=== PATIENT | male | born 1965 | race American Indian/Alaskan Native ===

== ENCOUNTER 2016-11-24 21:19 | Emergency (ER) | payer MEDICAID ==
[2016-11-24 22:46] LABS: EOS # 0.5 K/uL (0.0-0.7); EOS % 10.1 % (0.0-4.0); HEMATOCRIT 39.5 % (35.0-51.0); LYMPH # 1.7 K/uL (1.0-4.3); LYMPH % 34.5 % (20.0-40.0); MEAN CELL VOLUME 94.5 fL (80.0-94.0); MEAN CORPUSCULAR HGB CONC 32.9 g/dL (33.0-37.0); MEAN PLATELET VOLUME 7.6 fL (7.2-11.7); MONO # 0.4 K/uL (0.0-0.8); MONO % 7.9 % (0.0-10.0); NRBC % 0.1 % (0.0-2.0); WHITE BLOOD COUNT 4.9 K/uL (4.8-10.8)
[2016-11-24 22:54] LABS: CHLORIDE 98 mmol/L (98-107); POTASSIUM 3.8 mmol/L (3.6-5.2); SODIUM 140 mmol/L (132-148)
[2016-11-24 22:56] LABS: BILIRUBIN,TOTAL 0.7 mg/dL (0.2-1.3); CARBON DIOXIDE 28 mmol/L (22-30); GFR AFRICAN-AMERICAN > 60
[2016-11-24 22:57] LABS: ALB/GLOB RATIO 1.5 (1.0-2.1); ALCOHOL SERUM 160 mg/dl (0-10); ALKALINE PHOSPHATASE 47 U/L (38-126); ALT/SGPT 28 U/L (21-72); AST/SGOT 51 U/L (17-59); BLOOD UREA NITROGEN 9 mg/dL (9-20); CALCIUM 8.5 mg/dl (8.6-10.4); GLUCOSE,RANDOM 90 mg/dL (75-110); TOTAL PROTEIN 7.2 g/dL (6.3-8.3)
[2016-11-24 23:06] LABS: URINE BILIRUBIN NEGATIVE (NEGATIVE); URINE BLOOD NEGATIVE (NEGATIVE); URINE COLOR Yellow (YELLOW); URINE GLUCOSE (UA) NORMAL (Normal); URINE KETONE NEGATIVE (NEGATIVE); URINE LEUKOCYTE ESTERASE NEG Leu/uL (Negative); URINE PROTEIN NEGATIVE (NEGATIVE); URINE UROBILINOGEN NORMAL mg/dL (0.2-1.0); WBC URINE < 1 /hpf (0-5)
--- NOTE | 2016-11-25 | C.PDOC ---
History Of Present Illness 51 year old male presents to the ER with complaints of feeling depressed and having suicidal ideations for the past 2 days. Patient has a suicidal plan to walk into traffic. He currently has no physical complaints. Time Seen by Provider: 11/24/16 22:20 Chief Complaint (Nursing): Psychiatric Evaluation History Per: Patient History/Exam Limitations: no limitations Onset/Duration Of Symptoms: Days (2) Current Symptoms Are (Timing): Still Present Suicide/Self Injury Attempted (Context): None Severity: Moderate Associated Symptoms: Suicidal Thoughts, Suicidal Plan (Walk into traffic) Past Medical History Reviewed: Historical Data, Nursing Documentation, Vital Signs Vital Signs: Last Vital Signs Temp 97.9 F 11/25/16 04:10 Pulse 74 11/25/16 04:10 Resp 16 11/25/16 04:10 BP 134/77 11/25/16 04:10 Pulse Ox 98 11/25/16 04:10 - Medical History PMH: Anxiety, Bipolar Disorder, Depression, HTN, Hyperthyroidism - [facility] Procedures COMBINED ALCOHOL AND DRUG DETOXIFICATION (01/26/15) GROUP PSYCHOTHERAPY (11/25/16) INDIVID PSYCHOTHERAP NEC (02/26/15) INDIVIDUAL PSYCHOTHERAPY, COGNITIVE-BEHAVIORAL (11/25/16) OTHER GROUP THERAPY (01/26/15) PSYCHIAT DRUG THERAP NEC (02/26/15) SUPPOR VERBAL PSYCHOTHER (01/26/15) Family History: States: No Known Family Hx - Social History Hx Tobacco Use: Yes Hx Alcohol Use: Yes Hx Substance Use: Yes - Immunization History Hx Tetanus Toxoid Vaccination: Yes Hx Influenza Vaccination: No Hx Pneumococcal Vaccination: No Review Of Systems Except As Marked, All Systems Reviewed And Found Negative. Cardiovascular: Negative for: Chest Pain, Palpitations Respiratory: Negative for: Cough, Shortness of Breath Gastrointestinal: Negative for: Nausea, Vomiting, Abdominal Pain, Diarrhea Psych: Positive for: Depression, Suicidal ideation Physical Exam - Physical Exam Appears: Well, Non-toxic, No Acute Distress, Other (Flat affect) Skin: Normal Color, Warm, Dry Head: Normacephalic Eye(s): bilateral: Normal Inspection Cardiovascular: Rhythm Regular Respiratory: Normal Breath Sounds, No Rales, No Rhonchi, No Wheezing Gastrointestinal/Abdominal: Normal Exam, Bowel Sounds, Soft, No Tenderness Neurological/Psych: Oriented x3 Gait: Steady ED Course And Treatment - Laboratory Results Result Diagrams: 11/24/16 22:42 11/24/16 22:42 ECG: Interpreted By Me, Viewed By Me (NSR 68 bpm, normal axis, no acute ST/T wave changes - unchanged from prior EKG 08/23/16) ECG Interpretation: No Acute Changes O2 Sat by Pulse Oximetry: 97 (Room air) Pulse Ox Interpretation: Normal - Radiology CXR: Interpreted by Me, Viewed By Me (no infiltrates/effusions) CXR Interpretation: Yes: No Acute Disease Progress Note: Blood work, UA, UDs ordered and reviewed. 12:00am- Patient medically cleared. Pending crisis. 1:00am- No beds currently available at [facility], but [facility] has available beds as per [facility]. EKG and CXR ordered. 2: 05AM- Patient medically cleared for psychiatric admission and transfer. 4:15am - Patient to be transferred to [facility] for psychiatric admission under Dr. Chew. Disposition - Disposition Disposition: Trans to Other Acute Care Hosp Disposition Time: 04:23 Condition: STABLE - Clinical Impression Clinical Impression: Depression, Suicidal ideation - Scribe Statement The provider has reviewed the documentation as recorded by the Scribantwan Parra All medical record entries made by the Scribe were at my direction and personally dictated by me. I have reviewed the chart and agree that the record accurately reflects my personal performance of the history, physical exam, medical decision making, and the department course for this patient. I have also personally directed, reviewed, and agree with the discharge instructions and disposition. Decision To Admit - . Patient Diagnosis: Depression, Suicidal ideation
[2016-11-25 01:30] VITALS: RESP 16
[2016-11-25 04:11] VITALS: BP 134/77; PULSE 74; TEMP 97.9
--- NOTE | 2016-11-25 08:54 | RAD ---
PROCEDURE: CHEST RADIOGRAPH, 1 VIEW HISTORY: Medical clearance COMPARISON: None available. FINDINGS: LUNGS: Clear. PLEURA: No pneumothorax or pleural fluid seen. CARDIOVASCULAR: Normal. OSSEOUS STRUCTURES: No significant abnormalities. VISUALIZED UPPER ABDOMEN: Normal. OTHER FINDINGS: None. IMPRESSION: No active disease.
--- NOTE | 2016-11-25 14:40 | CARD ---
APPROVED REPORT EKG Measurement Heart [id number] <Conclusion> Normal sinus rhythm Septal infarct, age undetermined Abnormal ECG
[2016-12-03 16:14] VITALS: O2SAT 97
== END 2016-11-25 04:22 | disposition short-term general hospital (02) ==
LOC: C.ER 21:19
DX: F32.89 Other specified depressive episodes (principal); R45.851 Suicidal ideations

== ENCOUNTER 2018-08-19 01:10 | Inpatient (IN) | payer MEDICAID ==
[2018-08-19 01:10] VITALS: BMI 23.6
[2018-08-19 02:49] LABS: BASO % 0.7 % (0.0-2.0); EOS # 0.1 K/uL (0.0-0.7); EOS % 2.1 % (0.0-4.0); HEMOGLOBIN 12.2 g/dL (12.0-18.0); LYMPH % 17.5 % (20.0-40.0); MEAN CELL VOLUME 95.7 fL (80.0-94.0); MEAN CORPUSCULAR HEMOGLOBIN 32.8 pg (27.0-31.0); MEAN CORPUSCULAR HGB CONC 34.3 g/dL (33.0-37.0); MEAN PLATELET VOLUME 7.6 fL (7.2-11.7); MONO # 0.6 K/uL (0.0-0.8); MONO % 9.3 % (0.0-10.0); NEUT # 4.2 K/uL (1.8-7.0); NEUT % 70.4 % (50.0-75.0); RBC 3.72 Mil/uL (4.40-5.90); RED CELL DISTRIBUTION WIDTH 14.1 % (11.5-14.5)
[2018-08-19 02:54] LABS: SQUAMOUS EPITHIAL 1 /hpf (0-5); URINE BILIRUBIN NEGATIVE (NEGATIVE); URINE BLOOD NEGATIVE (NEGATIVE); URINE CLARITY Clear (Clear); URINE COLOR Yellow (YELLOW); URINE GLUCOSE (UA) NORMAL (Normal); URINE LEUKOCYTE ESTERASE NEG Leu/uL (Negative); URINE PROTEIN NEGATIVE (NEGATIVE)
[2018-08-19 03:03] LABS: ALB/GLOB RATIO 1.5 (1.0-2.1); ALBUMIN 4.3 g/dL (3.5-5.0); ALT/SGPT 48 U/L (21-72); AST/SGOT 72 U/L (17-59); BLOOD UREA NITROGEN 13 mg/dL (9-20); CALCIUM 8.8 mg/dl (8.6-10.4); GFR NON-AFRICAN AMERICAN > 60
[2018-08-19 03:05] LABS: BARBITURATES, UR NEGATIVE (NEGATIVE); PHENCYCLIDINE, UR NEGATIVE (NEGATIVE)
--- NOTE | 2018-08-19 03:08 | C.PDOC ---
History Of Present Illness 52 year old male presents to the ED for evaluation of feeling depressed and having suicidal ideation. 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 Patient denies HI, hallucinations, CP, SOB, injury, fall, trauma. Time Seen by Provider: 08/19/18 01:40 Chief Complaint (Nursing): Psychiatric Evaluation History Per: Patient History/Exam Limitations: intoxication Onset/Duration Of Symptoms: Hrs Current Symptoms Are (Timing): Still Present Suicide/Self Injury Attempted (Context): None Modifying Factor(s): Narcotics Associated Symptoms: Depression, Suicidal Thoughts. denies: Suicidal Plan Additional History Per: Patient Past Medical History Reviewed: Historical Data, Nursing Documentation, Vital Signs - Medical History PMH: Anxiety, Bipolar Disorder, Depression, HTN, Hyperthyroidism Denies: Diabetes, Hepatitis, HIV, Kidney Stones, Chronic Kidney Disease, Seizures, Sexually Transmitted Disease Surgical History: No Surg Hx - [facility] Procedures COMBINED ALCOHOL AND DRUG DETOXIFICATION (01/26/15) GROUP PSYCHOTHERAPY (11/25/16) INDIVID PSYCHOTHERAP NEC (02/26/15) INDIVIDUAL PSYCHOTHERAPY, COGNITIVE-BEHAVIORAL (11/25/16) OTHER GROUP THERAPY (01/26/15) PSYCHIAT DRUG THERAP NEC (02/26/15) SUPPOR VERBAL PSYCHOTHER (01/26/15) Family History: States: Unknown Family Hx, [place] (2 aunts, father ) - Social History Hx Tobacco Use: Yes Hx Alcohol Use: Yes Hx Substance Use: Yes - Immunization History Hx Tetanus Toxoid Vaccination: No Hx Influenza Vaccination: No Hx Pneumococcal Vaccination: No Review Of Systems Constitutional: Negative for: Fever, Chills Cardiovascular: Negative for: Chest Pain, Palpitations Respiratory: Negative for: Shortness of Breath Gastrointestinal: Negative for: Nausea, Vomiting, Abdominal Pain Skin: Negative for: Rash Neurological: Negative for: Weakness, Numbness Psych: Positive for: Depression, Suicidal ideation Physical Exam - Physical Exam Appears: Non-toxic, No Acute Distress Skin: Normal Color, Warm, Dry Head: Atraumatic, Normacephalic Eye(s): bilateral: Normal Inspection Neck: Normal ROM, Supple Chest: Symmetrical Cardiovascular: Rhythm Regular Respiratory: Normal Breath Sounds, No Rales, No Rhonchi, No Wheezing Gastrointestinal/Abdominal: Soft, No Tenderness, No Guarding, No Rebound Extremity: Normal ROM, No Tenderness, No Swelling Neurological/Psych: Oriented x3, Normal Speech, Normal Cognition Gait: Steady ED Course And Treatment - Laboratory Results Result Diagrams: 08/19/18 02:46 08/19/18 02:46 Pulse Ox Interpretation: Normal Progress Note: Plan: - Labs. - UA. - Crisis eval. Pt is medically cleared for psych admission. Pt was evaluated by Crisis Mr Jacqueline who discussed the case with Dr Jacek biggs acquisition editor and pt will be admitted for depression Disposition - Disposition Disposition: HOSPITALIZED Disposition Time: 04:20 Condition: STABLE Forms: Virtual Command (Georgian) - Clinical Impression Clinical Impression: Moderate major depression, single episode - PA / BUILDING PERFORMANCE SPECIALIST / Resident Statement MD/DO has reviewed & agrees with the documentation as recorded. - Scribe Statement The provider has reviewed the documentation as recorded by the Scribe Dorian Kennedy All medical record entries made by the Scribe were at my direction and personally dictated by me. I have reviewed the chart and agree that the record accurately reflects my personal performance of the history, physical exam, medical decision making, and the department course for this patient. I have also personally directed, reviewed, and agree with the discharge instructions and disposition.
[2018-08-19 03:30] LABS: BENZODIAZEPINES, UR POSITIVE (NEGATIVE); OPIATES, UR POSITIVE (NEGATIVE)
[2018-08-19 03:46] VITALS: O2SAT 97
--- NOTE | 2018-08-19 05:27 | PCM.BM ---
<Nitza Isabel - Last Filed: 08/19/18 05:26> Treatment Plan Problems - Problems identified on initial assessmt Depression Date Initiated: 08/19/18 Time Initiated: 04:40 Assessment reference: NA Status: Active Polysubstance Date Initiated: 08/19/18 Time Initiated: 04:40 Assessment reference: NA Status: Active <Leo Read - Last Filed: 08/19/18 11:27> - Diagnosis (1) Depression Status: Acute Interventions: 08/19/18 11:27 * Assess/adjust medications daily and /or as needed * See patient on an individual basis 7x/week to assess symptoms of depression * Monitor for side effects & effectiveness of medications * (2) Opiate overdose Status: Acute Interventions: 08/19/18 11:27 * Assess 7x/week regarding severity of withdrawal * Educate regarding risks, benefits, side effects and alternatives of medications * Use Motivational Interviewing for abstinence * Use CBT for relapse prevention * Medication management for withdrawal symptoms * Encourage medication assisted treatment * <Yanet Hill - Last Filed: 08/19/18 11:59> Family Contact Family involvement: Famliy/SO not involved - Goals for Treatment Patient goals for treatment: "I need an IOP program." Discharge/Continuing Care - Education Needs Education Needs: Patient Medication, Patient Coping Skills - Discharge Discharge Criteria: Tolerates medication w/o severe side effects, No longer exhibiting s/s of withdrawal Discharge to:: Home - Treatment Team Participation Discussed with Family/SO: No Was Patient/Family/SO present at Treatment Team Meeting: Yes
[2018-08-19] MEDS: Levothyroxine 75 MCG TAB PO SCH (06:33)
[2018-08-19] MEDS ORDERED: Pneumococcal 23-Valent Vaccine IM ONE (10:00)
--- NOTE | 2018-08-19 10:40 | PCM.PSYCH ---
Initial Psychiatric Evaluation - Initial Psychiatric Evaluation Type of Admission: Voluntary Legal Status: Capacity Chief Complaint (in patient's own words): Depressed and suicidal.' History of Present Illness and Precipitating Events: Pt is a 52 years old male who is currently single and unemployed, came to the ED with depressed mood and suicidal ideation. Patient reports that for the past 7 years he has used heroin daily, 15-20 bags/day, as well as one gram of cocaine/day and drinks up to a pint of alcohol a day with no hx or seizures. Patient has been previously hospitalized at [facility] and in [place] for suicide attempts via drug overdose. Pt reports making 3 prior suicide attempts by od, lacerating his left wrist (old wound noted on same), and "walking in front of the light rail" (Pt stated the train stopped "right at the last second"). Pt was previously on risperidol, Zoloft, and seraquil which worked for him when he was compliant but he is not currently compliant with any medication or follow up. Patient reports that yesterday he consumed almost 20 bags of heroine and consumed more than a pint, started developing withdrawal symptoms so he came to the hospital to get help. Reports depressed mood, feelings of hopelessness and helplessness and worthlessness. He also reports poor appetite, and poor sleep. He also reports at times irritability and agitation. However he denies any auditory hallucinations or any paranoia. He reports withdrawal symptoms from heroin and alcohol including nausea, vomiting, diarrhea, shakes, sweating and tremors. Past Medical History None reported Current Medications: Active Medications Generic Name Dose Route Start Last Admin Trade Name Freq PRN Reason Stop Dose Admin Influenza Virus Vaccine 60 mcg 08/22/18 10:00 Fluzone Quad [id number] IM 08/22/18 10:01 .ONCE ONE Levothyroxine Sodium 75 mcg 08/19/18 06:30 08/19/18 06:33 Synthroid PO 75 mcg DAILY@0630 SHERIE Administration Past Psychiatric History - Past Psychiatric History Previous Treatment History: Inpatient Pertinent Medical Hx (Current Medical&Sleep Prob, Allergies): Allergies Allergy/AdvReac Type Severity Reaction Status Date / Time No Known Allergies Allergy Verified 08/19/18 01:26 Sertraline 08/19/18 Zoloft 08/19/18 Review of Systems - Review of Systems All systems: reviewed and no additional remarkable complaints except - Psychiatric Psychiatric: Anxiety, Depression, Irritability, Suicidal Ideation Mental Status Examination - Personal Presentation Personal Presentation: Looks stated age - Affect Affect: Constricted, Depressed - Motor Activity Motor Activity: Calm - Reliability in Providing Information Reliability in Providing Information: Good - Speech Speech: Organized - Mood Mood: Depressed, Anxious - Formal Thought Process Formal Thought Process: No Impairment - Obsessions/Compulsions Obsessions: No Compulsions: No - Cognitive Functions Orientation: Person, Place, Situation, Time Sensorium: Alert Attention/Concentration: Attentive Abstract Thinking: [place] Estimate of Intelligence: Below average Judgement: Imparied, as evidence by: Poor judgement, Imparied, as evidence by: Lack of insight into illness - Risk Risk: Suicidal, Diminished functioning - Limitations Limitations: Living alone DSM 5 DX - DSM 5 DSM 5 Diagnosis: Major depressive disorder recurrent severe without psychotic features Opioid use disorder severe Opioid withdrawal Alcohol use disorder severe Alcohol withdrawal Cocaine use disorder severe - Recommended/Plan of Treatment Treatment Recommendations and Plan of Treatment: Major depressive disorder recurrent severe without psychotic features Opioid use disorder severe Opioid withdrawal Alcohol use disorder severe Alcohol withdrawal Cocaine use disorder severe CBT Psychoeducation Supportive therapy and group therapy Librium taper Methadone taper Trazodone 50 mg p.o. nightly Hydroxyzine 25 mg p.o. every 6 hours as needed Neurontin 100 mg p.o. 3 times daily - Smoking Cessation Smoking Cessation Initiated: No
[2018-08-19] MEDS ORDERED: Aluminum Hydroxide/Magnesium Hydroxide Susp (30 mL) PO PRN (11:00)
[2018-08-19] MEDS: Multiple Vitamins Tab PO SCH (11:08)
[2018-08-20] MEDS: Levothyroxine 75 MCG TAB PO SCH (06:02)
[2018-08-20 06:25] VITALS: RESP 18
[2018-08-20] MEDS: Multiple Vitamins Tab PO SCH (09:32)
--- NOTE | 2018-08-20 23:03 | PCM.PYCHPN ---
Psychiatric Progress Note - Psychiatric Progress Note Patient seen today, length of contact: 15 minutes Patient Chief Complaint: I am not feeling better. Problems Identified/Issues Discussed: Patient seen, chart reviewed, case discussed with the staff. Issues related to illness and treatment were discussed with the patient and staff. Reported compliant with treatment with no adverse effect. Calm and cooperative. Reported not feeling better. Patient still has withdrawal symptoms including nausea, sweating, sleeping difficulty, body aches and runny nose. Awake, alert and oriented x 3. Mood reported as anxious. Affect appropriate. Memory intact. Aftercare discussed with the patient. Denied any delusions, auditory or visual hallucinations, suicidal ideations or homicidal ideations at the time of evaluation. Medical Problems: None reported Diagnostic Results: Reviewed Medication Change: No Medical Record Reviewed: Yes Mental Status Examination - Cognitive Function Orientation: Person, Place, Situation, Time Memory: Intact Attention: WNL Concentration: WNL Association: [facility] Fund of Knowledge: [facility] Decription of patient's judgement and insights: Fair - Mood Mood: Anxious - Affect Affect: Other (Appropriate) - Speech Speech: Appropriate - Formal Thought Process Formal Thought Process: No Impairment Psychotic Thoughts and Behaviors: None - Suicidal Ideation Suicidal Ideation: No - Homicidal Ideation Homicidal Ideation: No Goal/Treatment Plan - Goal/Treatment Plan Need for Continued Stay: Remain at risks for inpatient hospitalization, Discharge may exacerbated symptoms, Severe functional impairment Progress Toward Problem(s) and Goals/Treatment Plan: Patient education. Supportive therapy. CBT for relapse prevention. VT for abstinence. Continue treatment as before. Estimated Date of D/C: 08/25/18 - Smoking Cessation Smoking Cessation Initiated: No
[2018-08-21] MEDS: Levothyroxine 75 MCG TAB PO SCH (06:25)
[2018-08-21 06:39] VITALS: BP 128/83; PULSE 67; TEMP 98.6
--- NOTE | 2018-08-21 17:23 | PCM.PYCHDC ---
Mental Status Examination - Mental Status Examination Orientation: Person, Place, Situation, Time Memory: Intact Mood: Neutral Affect: Other (Appropriate) Speech: Appropriate Attention: WNL Concentration: WNL Association: WNL Fund of Knowledge: WNL Formal Thought Process: No Impairment Description of patient's judgement and insight: Fair Psychotic Thoughts and Behaviors: None Suicidal Ideation: No Current Homicidal Ideation?: No Discharge Summary - Discharge Note Reason for Hospitalization: Major depressive disorder recurrent severe without psychotic features. Opioid use disorder severe. Alcohol use disorder severe. Cocaine use disorder severe. Laboratory Data: Reviewed Consultations:: List each consultation separately and include: 1. Reason for request. 2. Findings. 3. Follow-up Summary of Hospital Course include:: 1. Description of specific treatment plan utilized for patients during their course of treatmen. 2. Summarize the time- course for resolution of acute symptoms and/or regressed behaviors. 3. Describe issues identified and worked on during hospitalization. 4. Describe medication utilized. 5. Describe medical problems identified and treated. 6. Reassessment of suicide risk Summary of Hospital Course: Pt is a 52 years old male who is currently single and unemployed, came to the ED with depressed mood and suicidal ideation. Patient reports that for the past 7 years he has used heroin daily, 15-20 bags/day, as well as one gram of cocaine/day and drinks up to a pint of alcohol a day with no hx or seizures. Patient has been previously hospitalized at [facility] and in [place] for suicide attempts via drug overdose. Pt reports making 3 prior suicide attempts by od, lacerating his left wrist (old wound noted on same), and "walking in front of the light rail" (Pt stated the train stopped "right at the last second"). Pt was previously on risperidol, Zoloft, and seraquil which worked for him when he was compliant but he is not currently compliant with any medication or follow up. Patient reports that yesterday he consumed almost 20 bags of heroine and consumed more than a pint, started developing withdrawal symptoms so he came to the hospital to get help. Reports depressed mood, feelings of hopelessness and helplessness and worthlessness. He also reports poor appetite, and poor sleep. He also reports at times irritability and agitation. However he denies any auditory hallucinations or any paranoia. He reports withdrawal symptoms from heroin and alcohol including nausea, vomiting, diarrhea, shakes, sweating and tremors. During his stay in the hospital, patient was started on methadone taper for opioid withdrawal symptoms. Patient was also started on other PRN medications. With above treatment patient started feeling better. Today patient decided to leave without completion of the treatment. Patient was educated to complete the treatment. Patient refused. Patient will also educated that in case of any adverse events including decompensation, relapse, overdose or of the patient, patient will be responsible for his acts. Patient understood and agreed with above but still refused to stay and left the unit AGAINST MEDICAL ADVICE. At the time of evaluation and discharge, patient was awake, alert and oriented x3, had no delusions, no auditory or visual hallucinations, no suicidal ideations or homicidal ideations. - Final Diagnosis (DSM 5) Condition upon Discharge: STABLE Disposition: HOME/ ROUTINE Follow-up Treatment Plan: Patient will go to [facility] for follow-up care after discharge from the hospital. - Smoking Cessation Smoking Cessation Medication prescribed: No - Antipsychotic Medications Pt discharged on 2 or more routine antipsychotic medications: No
[2018-08-22] MEDS ORDERED: Influenza Vaccine 60 MCG/0.5 ML SYR (3 yr & up) IM ONE (10:00)
[2018-08-22] MEDS ORDERED: Influenza Vaccine 60 mcg/0.5 mL SYR (4YR UP) IM ONE (10:00)
== END 2018-08-21 09:15 | disposition home or self-care (01) | DRG 751 ==
LOC: C.ER 01:10 → C.5E 04:11
PROVIDERS: ADMIT Psychiatry & Neurology Psychiatry; ATTEND Psychiatry & Neurology Psychiatry
PROC: GZ3ZZZZ Medication Management (ICD-10-PCS; principal; 2018-08-19)
PROC: HZ2ZZZZ Detoxification Services for Substance Abuse Treatment (ICD-10-PCS; 2018-08-19)
PROC: GZHZZZZ Group Psychotherapy (ICD-10-PCS; 2018-08-19)
PROC: GZ56ZZZ Individual Psychotherapy, Supportive (ICD-10-PCS; 2018-08-19)
DX: F33.2 Major depressive disorder, recurrent severe without psychotic features (principal); R45.851 Suicidal ideations; F11.23 Opioid dependence with withdrawal; F10.239 Alcohol dependence with withdrawal, unspecified; F14.20 Cocaine dependence, uncomplicated; F31.9 Bipolar disorder, unspecified; F17.210 Nicotine dependence, cigarettes, uncomplicated; I10 Essential (primary) hypertension; Z91.5 Personal history of self-harm